=== PATIENT | male | born 1935 | race African-American/Black ===

== ENCOUNTER 2018-08-25 08:30 | Day surgery (SDC) | payer OTHER ==
[2018-08-25] MEDS ORDERED: NA CHLORIDE 0.9% 500 ML ONE ×2 (09:14→09:53)
[2018-08-25] MEDS: PHENYLEPHRINE 10% OPTH 5ML ONE ×3 (09:16→09:36)
[2018-08-25] MEDS: CYCLOPENTOLATE 1% OPTH 2 ML ONE ×3 (09:16→09:36)
[2018-08-25] MEDS ORDERED: NS 0.9% VIAL 10 ML ONE (09:29)
[2018-08-25] MEDS ORDERED: EPINEPHRINE/PF 1 MG/ML AMP ONE (09:30)
[2018-08-25] MEDS: TETRACAINE HCL 0.5% 2ML OPTH ONE ×2 (09:41→10:41)
[2018-08-25] MEDS: BUPIVACAINE 0.25% PF 10 ML VIAL ONE ×2 (09:41→10:41)
[2018-08-25] MEDS ORDERED: PROPOFOL 200 MG/20 ML VIAL IV ONE (10:16)
[2018-08-25] MEDS: EPINEPHRINE/PF 1 MG/ML AMP ONE ×2 (10:17→10:54)
[2018-08-25] MEDS: BALANCED SALT IRRIG PLAIN 500 ML BTL IRR ONE ×2 (10:17→10:54)
[2018-08-25] MEDS: DUOVISC 1 KIT OPTH ONE ×2 (10:17→10:54)
[2018-08-25] MEDS ORDERED: LIDOCAINE 2% MPF 5 ML VIAL ONE (10:17)
[2018-08-25] MEDS: MOXIFLOXACIN HCL 10 DROPS/ML **OR USE OPTH ONE ×3 (10:18→11:19)
[2018-08-25] MEDS: LIDOCAINE 2% MPF 5 ML VIAL ONE ×2 (10:27→10:41)
--- NOTE | 2018-08-25 11:27 | P.BOP ---
Preoperative diagnosis: Nuclear sclerotic cataract OS Postoperative diagnosis: Same Primary procedure: Phacoemulsification with IOL OS Estimated blood loss: None Anesthesia: Local (Subetenon's infusion with anesthesia for cataract surgery) Complications: None Implants: SN60WF +24.5 Transferred to: Other (Day surgery) Condition: Good
--- NOTE | 2018-08-25 21:50 | OP ---
Surgeon: Tamara Geiger MD Anesthesiologist: Lashaun Perez CRNA, and Greyson Batista M.D. Preoperative Diagnosis: Nuclear sclerotic cataract, OS (left eye). Operation Performed: Phacoemulsification with intraocular lens implant, left eye. Anesthesia: Per cataract surgery. Complications: None. Description Of Procedure: In day surgery, the patient was prepped with Betadine and draped. A conju nctival incision was made in the inferior nasal quadrant with Tuan scissors. A sub-Tenon block c onsisting of a 1:1 mixture of 2% Xylocaine and 0.25% bupivacaine was placed through the conjunctival incision with a blunt cannula. A [place] balloon was placed over the eye and the patient was transferr ed to the operating room. In the operating room the patient was prepped and draped in the usual sterile fashion for ophthalmic surgery. A lid speculum was placed in the left eye. Two paracentesis sites were made superiorly and inferiorly in the limbal cornea. Viscoat was placed in the anterior chamber and a crescent blade wa s used to make a corneal groove and tunnel, and a keratome was used to enter the anterior chamber. P rovisc was placed in the anterior chamber and a 360 degree capsulotomy was performed with a cystitome . The lens was hydrodissected with BSS and rotated freely. The lens was removed with a stop and cho p technique. A 7.37 phaco CDE was used to remove the lens. Residual cortex was removed with the irr igation and aspiration. Provisc was placed in the capsular bag. An SN60WF + 24.5 diopter lens was p laced in the capsular bag without complications. Irrigation and aspiration was used to remove residu al viscoelastic. The paracentesis sites were hydrated with BSS. The wound and paracentesis sites we re inspected and found to be watertight. Vigamox 0.07 cc was placed intracamerally at the end of the procedure. The eye was irrigated with balanced salt solution. The eye was patched with a soft cott on patch and Gilbert metal shield. The patient was returned to day surgery in good condition. Comments: The 1:5000 epinephrine was placed in the anterior chamber prior to Viscoat. Discharge Instructions: Mr. Gonzalez is discharged to home in good condition and is to follow up with Dr. Geiger in the morning. JHL/NUSRAT Voice ID: [id number] Report ID: [id number]
== END 2018-08-25 11:55 | disposition home or self-care (01) ==
LOC: OR 08:30
PROVIDERS: ATTEND Ophthalmology Retina Specialist
PROC: 08RK3JZ Replacement of Left Lens with Synthetic Substitute, Percutaneous Approach (ICD-10-PCS; principal; 2018-08-25 10:00)
DX: H25.12 Age-related nuclear cataract, left eye (principal); E78.00 Pure hypercholesterolemia, unspecified; I10 Essential (primary) hypertension; Z79.82 Long term (current) use of aspirin; Z79.899 Other long term (current) drug therapy; Z87.891 Personal history of nicotine dependence
CPT/HCPCS: 66984; J0171 ×2; J2704; V2630

== ENCOUNTER 2019-02-11 08:36 | Day surgery (SDC) | payer OTHER ==
[~2019-02-11 08:36] MED LIST: LIDOCAINE 1% 20 ML MDV ONE
--- NOTE | 2019-02-11 08:44 | RAD REPORT ---
EXAM DESCRIPTION: Nataly Pinedo And Lat (2 Views)02/11/2019 8:31 am CLINICAL HISTORY: Preop for skull biopsy COMPARISON: None FINDINGS: Two subcentimeter nodular opacities right lung base. The remainder of the lungs appear clear. The heart is normal size IMPRESSION: Two subcentimeter nodular opacities right lung base may represent pulmonary nodules or confluence of ribs and vessels. Followup chest series including oblique films recommended for further evaluation
[2019-02-11 09:03] LABS: Potassium 4.3 mmol/L (3.5-5.1)
[2019-02-11 09:05] LABS: Absolute Lymphocytes (CBC) 1.5 K/uL (0.7-4.9); Basophils % 0.4 % (0-1.3); Hematocrit 44.4 % (39.6-49.0); Lymphocytes % 14.7 % (15.3-44.8); MPV 9.5 fL (7.6-11.3); RBC Red Blood Cell Count 5.35 M/uL (4.33-5.43)
[2019-02-11] MEDS ORDERED: Ringers Lactate 1,000 ML IV ONE (09:14)
[2019-02-11] MEDS ORDERED: CEFAZOLIN/SWI 1gm 1 GM/10 ML SYR ONE (09:14)
[2019-02-11] MEDS ORDERED: LIDOCAINE 1% MPF 30 ML VIAL ONE (09:55)
[2019-02-11] MEDS ORDERED: PROPOFOL 200 MG/20 ML VIAL IV ONE (09:59)
[2019-02-11] MEDS ORDERED: FENTANYL CITR 100 MCG/2 ML ONE (09:59)
[2019-02-11] MEDS ORDERED: MIDAZOLAM HCL 2 MG/2 ML INJ ONE ×2 (09:59→10:32)
[2019-02-11] MEDS ORDERED: LIDOCAINE 1% MPF 5 ML VIAL ONE (09:59)
--- NOTE | 2019-02-11 10:46 | EKG ---
Test Date: 2019-02-11 Test Time: 08:24:28 Rock Contractor: MAIKOL MEASUREMENT RESULTS: Intervals: Rate: 74 MI: 168 QRSD: 106 QT: 398 QTc: 441 [place]: P: 68 MI: 168 QRS: 33 T: 39 INTERPRETIVE STATEMENTS: Normal sinus rhythm Nonspecific T wave abnormality Abnormal ECG Compared to ECG 05/04/2002 09:26:00 Sinus bradycardia no longer present Atrial premature complex(es) no longer present T-wave abnormality still present Electronically Signed On 02-11-19 10:45:31 CDT by Gerard Cr
[2019-02-11] MEDS ORDERED: BUPIVACAINE 0.25% PF 10 ML VIAL ONE (11:07)
[2019-02-11] MEDS ORDERED: Mastisol Adhesive Liq ONE (11:27)
--- NOTE | 2019-02-11 22:41 | OP ---
Date of Procedure: 02/11/2019 Surgeon: Kana Amador MD Soda Drier Feeder: SARAH Escoto Preoperative Diagnosis: Right vision change, rule out temporal arteritis. Postoperative Diagnosis: Right vision change, rule out temporal arteritis. Procedure: Right temporal artery biopsy, Doppler aided. Estimated Blood Loss: Minimal. Specimen: Right temporal artery. Anesthesia: MAC. Complications: None. Patient tolerated the procedure in stable condition, was taken to Recovery in good general condition. Procedure In Detail: Patient was brought to the OR and placed in supine position. MAC anesthesia wa s begun. Patient was prepped and draped in the usual sterile fashion. Doppler device was used to is olate approximately a 4 cm segment of the branch of the right temporal artery above the right ear. T hen Marcaine 0.5% was infiltrated locally. A 15-blade was used to make a 4 cm incision. Subcutaneou s tissue was divided, and deep to that, branch of the temporal artery was identified. Proximal and d istal control was obtained, and then 4 cm segment was excised and sent to Pathology as specimen. A 4 -0 silk was used to tie off both ends and the wound was irrigated. Bleeding was controlled with caut bree. A 4-0 chromic was used to approximate the subcutaneous tissue and close the skin. Sterile dres sing was applied. Patient was awakened and taken to Recovery in good general condition. Discharge Note: Patient will go to day surgery and home when stable. Disposition: Home. Condition: Stable. Discharge Instructions: Resume home medications and diet. Activity as tolerated. No heavy lifting. Remove outer dressing in 2 days. Shower. Keep the wound clean and dry. Keep Steri-Strips on at a ll times. Follow up in my office in 2 weeks, call for appointment. Follow with Dr. Geiger in 1 we ek, call for appointment. Tylenol No. 3 one tablet p.o. q.4 p.r.n. pain, Keflex 500 mg p.o. q.6. /MODL Voice ID: [id number] Report ID: [id number]
== END 2019-02-11 12:18 | disposition home or self-care (01) ==
LOC: OR 08:36
PROVIDERS: ATTEND Surgery
PROC: 03BS0ZX Excision of Right Temporal Artery, Open Approach, Diagnostic (ICD-10-PCS; principal; 2019-02-11 09:15)
DX: H53.9 Unspecified visual disturbance (principal); I10 Essential (primary) hypertension
CPT/HCPCS: 93005; 85025; 80048; 36415; 88305; 71046; 37609; J2704; J2250; J0690; J3010

== ENCOUNTER 2024-11-06 10:54 | Emergency (ER) | payer OTHER ==
--- OUTSIDE RECORDS SUMMARY | 2024-11-06 10:58 | XMS REPORT | Continuity of Care Document ---
Author Name Unknown Address [address] [facility] [address] [place] [address] Organization [facility] Address [address] [facility] [address] [place] [address] Care Team Providers Care Brick Paver Name Role Phone Rufino López Attending Clinician Unavailable Payers Payer Name Policy Type Policy Number Effective Date Expirati on Date Source [employer] 53 [id number] 2022 00:00:00 [facility] Problems Condition Name Condition Details Condition Category Status Onset Date Resolution Date Last Treatment Date Treating Clinician Comments Source [id number] 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 Problem [facility] [id number] Mixed hyperlipid emia Problem [facility] [id number] Essential (primary) hypertensi on Problem [facility] [id number] Primary osteoarthr itis of right knee Problem [facility] [id number] Primary osteoarthr itis of left knee Problem [facility] [id number] History of prostate cancer Problem [facility] [id number] Body mass index [BMI] 30.0-30.9, adult Problem [facility] [id number] Glaucoma of both eyes, unspecifie d glaucoma type Problem [facility] Arthritis of both knees Arthritis of both knees Problem [facility] Arthralgia of the lower leg Knee pain, bilateral Problem [facility] [id number] Stage 3 chronic kidney disease, unspecifie d whether stage 3a or 3b CKD Problem [facility] Social History Social Habit Start Date Stop Date Quantity Comments Source History of Tobacco Use [facility] Sex Assigned At [facility] Smoking Status Start Date Stop Date Source Never Smoker [facility] Former Smoker 2024-04-17 00:00:00 2024-04-17 00:00:00 [facility] Medications Ordered Medication Name Filled Medication Name Start Date Stop Date Current Medication? Ordering Clinician Indication Dosage Frequency Signature (SIG) Comments Components Source Aspirin Aspirin No Aspirin amLODIPine Besylate 10 MG amLODIPine Besylate 10 MG No 1{table t} QD amLODIPine Besylate 10 MG Atorvastati n Calcium 40 MG Atorvastati n Calcium 40 MG No 1{table t} QD Atorvastat in Calcium 40 MG Metoprolol Tartrate 50 MG Metoprolol Tartrate 50 MG No 1{table t_with_ food} BID Metoprolol Tartrate 50 MG Latanoprost 0.005 % Latanoprost 0.005 % No Latanopros t 0.005 % Vital Signs Vital Name Observation Time Observation Value Comments S ource height 2024-09-17 11:20:00 63.5 [in_i] Comm on [facility] weight 2024-09-17 11:20:00 147.2 [lb_av] Co mmon [facility] temperature 2024-09-17 11:20:00 97 [degF] Comm on [facility] bmi 2024-09-17 11:20:00 25.66 kg/m2 Comm on [facility] oximetry 2024-09-17 11:20:00 97 % Commo n [facility] respiratory rate 2024-09-17 11:20:00 17 /min [facility] blood pressure systolic 2024-09-17 11:20:00 112 mm[Hg] [facility] blood pressure diastolic 2024-09-17 11:20:00 72 mm[Hg] Common [facility] height 2024-09-17 10:00:00 63.5 [in_i] Comm on [facility] weight 2024-09-17 10:00:00 147.2 [lb_av] Co mmon [facility] temperature 2024-09-17 10:00:00 97 [degF] Comm on [facility] bmi 2024-09-17 10:00:00 25.66 kg/m2 Comm on [facility] oximetry 2024-09-17 10:00:00 97 % Commo n [facility] respiratory rate 2024-09-17 10:00:00 17 /min Common [facility] blood pressure systolic 2024-09-17 10:00:00 112 mm[Hg] Common [facility] blood pressure diastolic 2024-09-17 10:00:00 72 mm[Hg] Common [facility] height 2024-04-17 10:30:00 63.5 [in_i] Comm on [facility] weight 2024-04-17 10:30:00 152.4 [lb_av] Co mmon [facility] temperature 2024-04-17 10:30:00 97.1 [degF] Com mon [facility] bmi 2024-04-17 10:30:00 26.57 kg/m2 Comm on [facility] oximetry 2024-04-17 10:30:00 99 % Commo n [facility] blood pressure systolic 2024-04-17 10:30:00 120 mm[Hg] Common [facility] blood pressure diastolic 2024-04-17 10:30:00 58 mm[Hg] Common [facility] height 2024-04-17 10:30:00 63.5 [in_i] Comm on [facility] weight 2024-04-17 10:30:00 152.4 [lb_av] Co mmon [facility] temperature 2024-04-17 10:30:00 97.1 [degF] Com [facility] bmi 2024-04-17 10:30:00 26.57 kg/m2 Comm on [facility] oximetry 2024-04-17 10:30:00 99 % Commo n [facility] blood pressure systolic 2024-04-17 10:30:00 120 mm[Hg] [facility] blood pressure diastolic 2024-04-17 10:30:00 58 mm[Hg] Common [facility] height 2023-10-17 10:10:00 63.5 [in_i] Comm on [facility] weight 2023-10-17 10:10:00 158.0 [lb_av] Co on [facility] temperature 2023-10-17 10:10:00 97.4 [degF] Com [facility] bmi 2023-10-17 10:10:00 27.55 kg/m2 Comm on [facility] oximetry 2023-10-17 10:10:00 98 % Commo n [facility] respiratory rate 2023-10-17 10:10:00 17 /min [facility] blood pressure systolic 2023-10-17 10:10:00 130 mm[Hg] [facility] blood pressure diastolic 2023-10-17 10:10:00 70 mm[Hg] [facility] height 2023-10-17 10:00:00 63.5 [in_i] Comm on [facility] weight 2023-10-17 10:00:00 158.0 [lb_av] Co mmon [facility] temperature 2023-10-17 10:00:00 97.4 [degF] Com [facility] bmi 2023-10-17 10:00:00 27.55 kg/m2 Comm on [facility] oximetry 2023-10-17 10:00:00 98 % Commo n [facility] respiratory rate 2023-10-17 10:00:00 17 /min Common [facility] blood pressure systolic 2023-10-17 10:00:00 130 mm[Hg] [facility] blood pressure diastolic 2023-10-17 10:00:00 70 mm[Hg] Common [facility] height 2023-06-19 10:40:00 63.5 [in_i] Comm on [facility] weight 2023-06-19 10:40:00 161 [lb_av] Comm on [facility] temperature 2023-06-19 10:40:00 98.2 [degF] Com [facility] bmi 2023-06-19 10:40:00 28.07 kg/m2 Comm on [facility] oximetry 2023-06-19 10:40:00 97 % Commo n [facility] blood pressure systolic 2023-06-19 10:40:00 112 mm[Hg] [facility] blood pressure diastolic 2023-06-19 10:40:00 60 mm[Hg] [facility] height 2023-04-29 13:30:00 63.5 [in_i] Comm on [facility] weight 2023-04-29 13:30:00 161 [lb_av] Comm on [facility] temperature 2023-04-29 13:30:00 98.0 [degF] Com [facility] bmi 2023-04-29 13:30:00 28.07 kg/m2 Comm on [facility] blood pressure systolic 2023-04-29 13:30:00 139 mm[Hg] [facility] blood pressure diastolic 2023-04-29 13:30:00 80 mm[Hg] Common [facility] height 2023-01-29 13:40:00 63.5 [in_i] Comm on [facility] weight 2023-01-29 13:40:00 168.2 [lb_av] Co mmon [facility] temperature 2023-01-29 13:40:00 97.6 [degF] Com mon [facility] bmi 2023-01-29 13:40:00 29.32 kg/m2 Comm on [facility] oximetry 2023-01-29 13:40:00 96 % Commo n [facility] respiratory rate 2023-01-29 13:40:00 16 /min Common [facility] blood pressure systolic 2023-01-29 13:40:00 147 mm[Hg] [facility] blood pressure diastolic 2023-01-29 13:40:00 69 mm[Hg] Common [facility] height 2023-01-29 13:30:00 63.5 [in_i] Comm on [facility] weight 2023-01-29 13:30:00 168.2 [lb_av] Co mmon [facility] temperature 2023-01-29 13:30:00 97.6 [degF] Com mon [facility] bmi 2023-01-29 13:30:00 29.32 kg/m2 Comm on [facility] oximetry 2023-01-29 13:30:00 96 % Commo n [facility] respiratory rate 2023-01-29 13:30:00 16 /min Common [facility] blood pressure systolic 2023-01-29 13:30:00 147 mm[Hg] Common [facility] blood pressure diastolic 2023-01-29 13:30:00 69 mm[Hg] Common [facility] height 2022-10-11 10:00:00 63.5 [in_i] Comm on [facility] weight 2022-10-11 10:00:00 173 [lb_av] Comm on [facility] temperature 2022-10-11 10:00:00 96.5 [degF] Com mon [facility] bmi 2022-10-11 10:00:00 30.16 kg/m2 Comm on [facility] oximetry 2022-10-11 10:00:00 95 % Commo n [facility] respiratory rate 2022-10-11 10:00:00 16 /min [facility] blood pressure systolic 2022-10-11 10:00:00 138 mm[Hg] [facility] blood pressure diastolic 2022-10-11 10:00:00 79 mm[Hg] [facility] Encounters Start Date/Time End Date/Time Encounter Type Admission Type Attending [facility] Care Department Encounter ID Source 2024-09-17 10:50:00 Outpatient López, [facility] [id number] [facility] 2023-10-15 09:20:01 Outpatient López, [facility] [id number] [facility] 2023-06-19 10:27:00 Outpatient López, [facility] [id number] [facility] 2023-04-29 14:50:01 Outpatient López, [facility] [id number] [facility] 2023-04-23 10:38:00 [facility] [id number] [facility] 2023-01-29 13:40:00 Outpatient López, [facility] [id number] [facility] 2022-10-11 09:08:04 [facility] [id number] [facility] 2024-09-17 00:00:00 2024-09-17 00:00:00 SUB ANNUAL [facility] VIS[facility] [id number] [facility] 2024-09-17 00:00:00 2024-09-17 00:00:00 OFFICE VISIT ESTAB PT LEVEL 4 STLMLC STLMLC [id number] [facility] 2024-04-17 00:00:00 2024-04-17 00:00:00 OFFICE VISIT ESTAB PT LEVEL 4 STLMLC STLMLC [id number] [facility] 2023-10-17 00:00:00 2023-10-17 00:00:00 OFFICE VISIT ESTAB PT LEVEL 4 STLMLC STLMLC [id number] [facility] 2023-10-17 00:00:00 2023-10-17 00:00:00 SUB ANNUAL [facility] WELLNESS VISIT STLMLC STLMLC [id number] [facility] 2023-06-19 00:00:00 2023-06-19 00:00:00 OFFICE VISIT ESTAB PT LEVEL 4 STLMLC STLMLC [id number] [facility] 2023-04-30 00:00:00 2023-04-30 00:00:00 (TEL) STLMLC STLMLC [id number] [facility] 2023-04-29 00:00:00 2023-04-29 00:00:00 (INFORMATICA) New Patient STLMLC STLMLC [id number] [facility] 2023-04-19 00:00:00 2023-04-19 00:00:00 (TEL) STLMLC STLMLC [id number] [facility] 2023-04-15 00:00:00 2023-04-15 00:00:00 (TEL) STLMLC STLMLC [id number] [facility] 2023-02-27 00:00:00 2023-02-27 00:00:00 (TEL) STLMLC STLMLC [id number] [facility] 2023-01-29 00:00:00 2023-01-29 00:00:00 OFFICE VISIT ESTAB PT LEVEL 4 STLMLC STLMLC [id number] [facility] 2023-01-29 00:00:00 2023-01-29 00:00:00 SUB ANNUAL [facility] [id number] [facility] 2022-10-11 00:00:00 2022-10-11 00:00:00 OFFICE VISIT NEW PT LEVEL 3 [facility] [id number] [facility] Results Test Description Test Time Test Comments Results Result Co mments Source COMPREHENSIVE METABOLIC [id number] 00:00:00* Test Item Value Reference Range Interpretation Comme nts NUCLEATED RBCS (test code = 99299-8) 0.0 /100 WBC'S See_Comment [Automated message] The system which generated this result transmitted reference range: 0.0 /100 WBC'S. The reference range was not used to interpret this result as normal/abnormal. ABSOLUTE EOSINOPHILS (test code = 96746-2) 0.22 K/UL See_Comment [Automated message] The system which generated this result transmitted reference range: 0.00-0.50 K/UL. The reference range was not used to interpret this result as normal/abnormal. ABSOLUTE LYMPHOCYTES (test code = 58590-1) 2.27 K/UL See_Comment [Automated message] The system which generated this result transmitted reference range: 1.00-4.00 K/UL. The reference range was not used to interpret this result as normal/abnormal. ABSOLUTE MONOCYTES (test code = 56229-9) 0.67 K/UL See_Comment [Automated message] The system which generated this result transmitted reference range: 0.20-1.00 K/UL. The reference range was not used to interpret this result as normal/abnormal. ABSOLUTE NEUTROPHILS (test code = 79057-2) 1.81 K/UL See_Comment [Automated message] The system which generated this result transmitted reference range: 1.50-7.50 K/UL. The reference range was not used to interpret this result as normal/abnormal. BASOPHILS (test code = 36778-4) 1.6 % EOSINOPHILS (test code = 72373-5) 4.4 % HEMATOCRIT (test code = 64131-6) 44.8 % See_Comment [Automated messa ge] The system which generated this result transmitted reference range: 40.0-51.0 %. The reference range was not used to interpret this result as normal/abnormal. HEMOGLOBIN (test code = 718-7) 14.1 G/DL See_Comment [Automated messa ge] The system which generated this result transmitted reference range: 13.5-17.0 G/DL. The reference range was not used to interpret this result as normal/abnormal. LYMPHOCYTES (test code = 56256-0) 45.0 % MCH (test code = 16216-5) 26.8 PG See_Comment [Automated messa ge] The system which generated this result transmitted reference range: 25.0-33.0 PG. The reference range was not used to interpret this result as normal/abnormal. MCHC (test code = 96357-1) 31.5 G/DL See_Comment [Automated messa ge] The system which generated this result transmitted reference range: 31.0-36.0 G/DL. The reference range was not used to interpret this result as normal/abnormal. MCV (test code = 28641-7) 85.0 fL See_Comment [Automated messa ge] The system which generated this result transmitted reference range: 80.0-99.0 fL. The reference range was not used to interpret this result as normal/abnormal. MONOCYTES (test code = 80019-7) 13.3 % NEUTROPHILS (test code = 75402-0) 35.7 % PLATELET COUNT (test code = 22148-5) 161 K/UL See_Comment [Automated messa ge] The system which generated this result transmitted reference range: 130-400 K/UL. The reference range was not used to interpret this result as normal/abnormal. RBC (test code = 47092-8) 5.27 M/UL See_Comment [Automated messa ge] The system which generated this result transmitted reference range: 4.50-6.10 M/UL. The reference range was not used to interpret this result as normal/abnormal. RDW (test code = 54547-8) 14.4 % See_Comment [Automated messa ge] The system which generated this result transmitted reference range: 11.5-15.0 %. The reference range was not used to interpret this result as normal/abnormal. WBC (test code = 55041-1) 5.1 K/UL See_Comment [Automated messa ge] The system which generated this result transmitted reference range: 3.5-11.0 K/UL. The reference range was not used to interpret this result as normal/abnormal. HEMOGLOBIN A1c (test code = 4548-4) 6.0 % See_Comment H [Automated [employer]] The system which generated this result transmitted reference range: 4.2-5.6 %. The reference range was not used to interpret this result as normal/abnormal. CALC LDL CHOL (test code = 57855-4) 83 MG/DL See_Comment [Automated [employer]] The system which generated this result transmitted reference range: <100 MG/DL. The reference range was not used to interpret this result as normal/abnormal. CHOLESTEROL (test code = 2093-3) 152 MG/DL See_Comment [Automated [employer]] The system which generated this result transmitted reference range: <200 MG/DL. The reference range was not used to interpret this result as normal/abnormal. HDL CHOLESTEROL (test code = 2085-9) 52 MG/DL See_Comment [Automated [employer]] The system which generated this result transmitted reference range: >39 MG/DL. The reference range was not used to interpret this result as normal/abnormal. RISK RATIO LDL/HDL (test code = 33003-0) 1.60 RATIO See_Comment [Automated message] The system which generated this result transmitted reference range: <3.55 RATIO. The reference range was not used to interpret this result as normal/abnormal. TRIGLYCERIDES (test code = 2571-8) 83 MG/DL See_Comment [Automated [employer]] The system which generated this result transmitted reference range: <150 MG/DL. The reference range was not used to interpret this result as normal/abnormal. ALBUMIN (test code = 1751-7) 4.0 G/DL See_Comment [Automated [employer]] The system which generated this result transmitted reference range: 3.5-5.2 G/DL. The reference range was not used to interpret this result as normal/abnormal. ALKALINE PHOSPHATASE (test code = 6768-6) 96 U/L See_Comment [Automated message] The system which generated this result transmitted reference range: 40-125 U/L. The reference range was not used to interpret this result as normal/abnormal. BILIRUBIN, TOTAL (test code = 1975-2) 0.5 MG/DL See_Comment [Automated [employer]] The system which generated this result transmitted reference range: <=1.2 MG/DL. The reference range was not used to interpret this result as normal/abnormal. BUN (test code = 3094-0) 15 MG/DL See_Comment [Automated messa ge] The system which generated this result transmitted reference range: 8-23 MG/DL. The reference range was not used to interpret this result as normal/abnormal. CALCIUM (test code = 18164-9) 9.4 MG/DL See_Comment [Automated messa ge] The system which generated this result transmitted reference range: 8.5-10.5 MG/DL. The reference range was not used to interpret this result as normal/abnormal. CALC A/G RATIO (test code = 1759-0) 1.7 RATIO See_Comment [Automated messa ge] The system which generated this result transmitted reference range: 1.0-2.6 RATIO. The reference range was not used to interpret this result as normal/abnormal. CALC BUN/CREAT (test code = 3097-3) 11 RATIO See_Comment [Automated messa ge] The system which generated this result transmitted reference range: 6-28 RATIO. The reference range was not used to interpret this result as normal/abnormal. CALC GLOBULIN (test code = 55240-7) 2.4 G/DL See_Comment [Automated messa ge] The system which generated this result transmitted reference range: 1.9-3.7 G/DL. The reference range was not used to interpret this result as normal/abnormal. CARBON DIOXIDE (test code = 1963-8) 27 MEQ/L See_Comment [Automated messa ge] The system which generated this result transmitted reference range: 19-31 MEQ/L. The reference range was not used to interpret this result as normal/abnormal. CHLORIDE (test code = 2075-0) 104 MEQ/L See_Comment [Automated messa ge] The system which generated this result transmitted reference range: 95-107 MEQ/L. The reference range was not used to interpret this result as normal/abnormal. CREATININE (test code = 2160-0) 1.33 MG/DL See_Comment [Automated messa ge] The system which generated this result transmitted reference range: 0.80-1.40 MG/DL. The reference range was not used to interpret this result as normal/abnormal. eGFR (2020 CKD-EPI) (test code = 98063-9) 51 ML/MIN/1.73 See_Comment L [Automated message] The system which generated this result transmitted reference range: >60 ML/MIN/1.73. The reference range was not used to interpret this result as normal/abnormal. GLUCOSE (test code = 1558-6) 92 MG/DL See_Comment [Automated messa ge] The system which generated this result transmitted reference range: 70-99 MG/DL. The reference range was not used to interpret this result as normal/abnormal. POTASSIUM (test code = 2823-3) 4.5 MEQ/L See_Comment [Automated messa ge] The system which generated this result transmitted reference range: 3.5-5.4 MEQ/L. The reference range was not used to interpret this result as normal/abnormal. PROTEIN, TOTAL (test code = 2885-2) 6.4 G/DL See_Comment [Automated messa ge] The system which generated this result transmitted reference range: 6.1-8.3 G/DL. The reference range was not used to interpret this result as normal/abnormal. AST (test code = 1920-8) 17 U/L See_Comment [Automated messa ge] The system which generated this result transmitted reference range: 9-50 U/L. The reference range was not used to interpret this result as normal/abnormal. ALT (test code = 1742-6) 15 U/L See_Comment [Automated messa ge] The system which generated this result transmitted reference range: 5-50 U/L. The reference range was not used to interpret this result as normal/abnormal. SODIUM (test code = 2951-2) 140 MEQ/L See_Comment [Automated messa ge] The system which generated this result transmitted reference range: 133-146 MEQ/L. The reference range was not used to interpret this result as normal/abnormal. CBC W/AUTO [id number] 00:00:00* Test Item Value Reference Range Interpretation Comme nts NUCLEATED RBCS (test code = 51865-8) 0.0 /100 WBC'S See_Comment [Automated messa ge] The system which generated this result transmitted reference range: 0.0 /100 WBC'S. The reference range was not used to interpret this result as normal/abnormal. ABSOLUTE EOSINOPHILS (test code = 69291-3) 0.26 K/UL See_Comment [Automated messa ge] The system which generated this result transmitted reference range: 0.00-0.50 K/UL. The reference range was not used to interpret this result as normal/abnormal. ABSOLUTE LYMPHOCYTES (test code = 95133-5) 2.08 K/UL See_Comment [Automated messa ge] The system which generated this result transmitted reference range: 1.00-4.00 K/UL. The reference range was not used to interpret this result as normal/abnormal. ABSOLUTE MONOCYTES (test code = 84519-7) 0.75 K/UL See_Comment [Automated messa ge] The system which generated this result transmitted reference range: 0.20-1.00 K/UL. The reference range was not used to interpret this result as normal/abnormal. ABSOLUTE NEUTROPHILS (test code = 00687-6) 2.49 K/UL See_Comment [Automated messa ge] The system which generated this result transmitted reference range: 1.50-7.50 K/UL. The reference range was not used to interpret this result as normal/abnormal. BASOPHILS (test code = 68678-0) 1.6 % EOSINOPHILS (test code = 98059-3) 4.6 % HEMATOCRIT (test code = 63797-5) 43.8 % See_Comment [Automated messa ge] The system which generated this result transmitted reference range: 40.0-51.0 %. The reference range was not used to interpret this result as normal/abnormal. HEMOGLOBIN (test code = 718-7) 14.1 G/DL See_Comment [Automated messa ge] The system which generated this result transmitted reference range: 13.5-17.0 G/DL. The reference range was not used to interpret this result as normal/abnormal. LYMPHOCYTES (test code = 61194-1) 36.6 % MCH (test code = 30792-5) 27.4 PG See_Comment [Automated messa ge] The system which generated this result transmitted reference range: 25.0-33.0 PG. The reference range was not used to interpret this result as normal/abnormal. MCHC (test code = 70929-7) 32.2 G/DL See_Comment [Automated messa ge] The system which generated this result transmitted reference range: 31.0-36.0 G/DL. The reference range was not used to interpret this result as normal/abnormal. MCV (test code = 43601-7) 85.0 fL See_Comment [Automated messa ge] The system which generated this result transmitted reference range: 80.0-99.0 fL. The reference range was not used to interpret this result as normal/abnormal. MONOCYTES (test code = 53592-4) 13.2 % NEUTROPHILS (test code = 04007-7) 43.8 % PLATELET COUNT (test code = 13775-8) 186 K/UL See_Comment [Automated messa ge] The system which generated this result transmitted reference range: 130-400 K/UL. The reference range was not used to interpret this result as normal/abnormal. RBC (test code = 26106-8) 5.15 M/UL See_Comment [Automated messa ge] The system which generated this result transmitted reference range: 4.50-6.10 M/UL. The reference range was not used to interpret this result as normal/abnormal. RDW (test code = 94131-3) 14.6 % See_Comment [Automated messa ge] The system which generated this result transmitted reference range: 11.5-15.0 %. The reference range was not used to interpret this result as normal/abnormal. WBC (test code = 22104-5) 5.7 K/UL See_Comment [Automated messa ge] The system which generated this result transmitted reference range: 3.5-11.0 K/UL. The reference range was not used to interpret this result as normal/abnormal. CBC W/AUTO [id number] 00:00:00* Test Item Value Reference Range Interpretation Comme nts NUCLEATED RBCS (test code = 77552-0) 0.0 /100 WBC'S See_Comment [Automated messa ge] The system which generated this result transmitted reference range: 0.0 /100 WBC'S. The reference range was not used to interpret this result as normal/abnormal. ABSOLUTE EOSINOPHILS (test code = 29596-9) 0.14 K/UL See_Comment [Automated messa ge] The system which generated this result transmitted reference range: 0.00-0.50 K/UL. The reference range was not used to interpret this result as normal/abnormal. ABSOLUTE LYMPHOCYTES (test code = 81419-9) 2.00 K/UL See_Comment [Automated messa ge] The system which generated this result transmitted reference range: 1.00-4.00 K/UL. The reference range was not used to interpret this result as normal/abnormal. ABSOLUTE MONOCYTES (test code = 58190-8) 0.66 K/UL See_Comment [Automated messa ge] The system which generated this result transmitted reference range: 0.20-1.00 K/UL. The reference range was not used to interpret this result as normal/abnormal. ABSOLUTE NEUTROPHILS (test code = 20511-4) 2.02 K/UL See_Comment [Automated messa ge] The system which generated this result transmitted reference range: 1.50-7.50 K/UL. The reference range was not used to interpret this result as normal/abnormal. BASOPHILS (test code = 72807-2) 1.2 % EOSINOPHILS (test code = 29554-7) 2.9 % HEMATOCRIT (test code = 33427-8) 45.3 % See_Comment [Automated messa ge] The system which generated this result transmitted reference range: 40.0-51.0 %. The reference range was not used to interpret this result as normal/abnormal. HEMOGLOBIN (test code = 718-7) 14.7 G/DL See_Comment [Automated messa ge] The system which generated this result transmitted reference range: 13.5-17.0 G/DL. The reference range was not used to interpret this result as normal/abnormal. LYMPHOCYTES (test code = 71829-2) 40.9 % MCH (test code = 75619-7) 26.8 PG See_Comment [Automated messa ge] The system which generated this result transmitted reference range: 25.0-33.0 PG. The reference range was not used to interpret this result as normal/abnormal. MCHC (test code = 67841-9) 32.5 G/DL See_Comment [Automated messa ge] The system which generated this result transmitted reference range: 31.0-36.0 G/DL. The reference range was not used to interpret this result as normal/abnormal. MCV (test code = 14764-1) 82.5 fL See_Comment [Automated messa ge] The system which generated this result transmitted reference range: 80.0-99.0 fL. The reference range was not used to interpret this result as normal/abnormal. MONOCYTES (test code = 19631-4) 13.5 % NEUTROPHILS (test code = 08883-9) 41.3 % PLATELET COUNT (test code = 25988-9) 157 K/UL See_Comment [Automated [employer]] The system which generated this result transmitted reference range: 130-400 K/UL. The reference range was not used to interpret this result as normal/abnormal. RBC (test code = 97938-3) 5.49 M/UL See_Comment [Automated [employer]] The system which generated this result transmitted reference range: 4.50-6.10 M/UL. The reference range was not used to interpret this result as normal/abnormal. RDW (test code = 75783-5) 14.6 % See_Comment [Automated [employer]] The system which generated this result transmitted reference range: 11.5-15.0 %. The reference range was not used to interpret this result as normal/abnormal. WBC (test code = 93949-6) 4.9 K/UL See_Comment [Automated [employer]] The system which generated this result transmitted reference range: 3.5-11.0 K/UL. The reference range was not used to interpret this result as normal/abnormal.
[2024-11-06] MEDS ORDERED: HYDROCODONE/APAP 7.5/325 MG TAB ONE (12:12)
[2024-11-06 12:36] LABS: Absolute Basophils 0.1 K/uL (0-0.5); Absolute Lymphocytes (CBC) 1.6 K/uL (0.7-4.9); Absolute Monocytes 1.3 K/uL (0.1-1.3); Absolute Neutrophil 5.7 K/uL (1.8-8.0); Basophils % 0.8 % (0-1.3); Eosinophils % 0.4 % (0-4.4); Hematocrit 45.3 % (39.6-49.0); Hemoglobin 15.3 g/dL (13.6-17.9); Lymphocytes % 18.2 % (15.3-44.8); MCH 27.4 pg (27.0-35.0); MCHC 33.7 g/dL (32.0-36.0); MCV 81.4 fL (80-100); MPV 9.5 fL (7.6-11.3); Monocytes % 14.6 % (3.3-12.3); Nucleated Red Blood Cells % 0.1 % (0-0); Platelets 150 thou/uL (152-406); RBC Red Blood Cell Count 5.56 M/uL (4.33-5.43); Red Cell Distribution Width 16.3 % (12.1-15.2)
[2024-11-06 12:55] LABS: Albumin 3.5 g/dL (3.4-5.0); Albumin/Globulin Ratio 0.8 (1.1-1.8); Anion Gap 10.2 mEq/L (5.0-15.0); Bilirubin Total 1.3 mg/dL (0.2-1.0); Globulin 4.4 g/dL (2.3-3.5); Potassium 4.2 mEq/L (3.5-5.1); Protein, Total 7.9 g/dL (6.4-8.2); Uric Acid 6.2 mg/dL (3.5-7.2)
--- NOTE | 2024-11-06 12:55 | RAD REPORT ---
EXAM: XR Knee Right 3 View HISTORY: [facility] MAIN PAIN Bed Name: [id number] COMPARISON: None TECHNIQUE: 3 views of the right knee were obtained. FINDINGS: Moderate knee effusion is seen. There is no evidence of acute fracture or dislocation. At least moderate tricompartmental osteoarthritic changes with joint space loss most pronounced laterally. Sclerotic lesion along the distal femoral shaft, nonspecific and could represent a small b one island. Vascular calcifications. IMPRESSION: No evidence of acute osseous abnormality. Moderate diffusion and at least moderate trico mpartmental osteoarthritic changes as above.
--- NOTE | 2024-11-06 14:04 | RAD REPORT ---
EXAMINATION: US RIGHT LOWER EXTREMITY VENOUS DOPPLER CLINICAL INDICATION: [facility] MAIN RLE PAIN Bed Name: IW6 Y TECHNIQUE: Complete bilateral duplex sonography of the RIGHT lower extremity veins was performed. The examination included compression for vein patency, color Doppler imaging and flow augmentation in response to distal compression of the distal external iliac, common femoral, femoral, popliteal, tibi al, and great and small saphenous veins. COMPARISON: No prior exam. FINDINGS: Duplex sonography testing of the veins of the RIGHT lower extremity was performed. Color flow imaging shows all veins to be compressible with [id number] color filling. Pulsatile and phasic flow is present within all lower extremity deep and superficial veins examined. IMPRESSION: No evidence of deep venous thrombosis.
--- NOTE | 2024-11-06 14:37 | ER ---
Nurse's Notes [facility] Name: Paulino Gonzalez Age: 89 yrs Sex: Male : 1935 Arrival Date: 11/06/2024 Time: 10:54 Bed 11 Private MD: Diagnosis: Pain in right knee Presentation: 11/06 11:21 Chief complaint: Patient states: Pain to right leg - woke up this morning with pain to ld1 right leg. Denies injury. Pt point to right knee/under right knee. Coronavirus screen: At this time, the client does not indicate any symptoms associated with coronavirus-19. Ebola Screen: No symptoms or risks identified at this time. Initial Sepsis Screen: Does the patient meet any 2 criteria? No. Patient's initial sepsis screen is negative. Does the patient have a suspected source of infection? No. Patient's initial sepsis screen is negative. Risk Assessment: Do you want to hurt yourself or someone else? Patient reports no desire to harm self or others. Onset of symptoms was November 06, 2024. 11:21 Method Of Arrival: Wheelchair ld1 11:21 Acuity: KANDY 4 ld1 Triage Assessment: 11:21 General: Appears in no apparent distress. uncomfortable, Behavior is calm, cooperative, ld1 appropriate for age. Pain: Complains of pain in right knee Pain does not radiate. Pain currently is 7 out of 10 on a pain scale. Quality of pain is described as throbbing, Pain began suddenly, Is continuous. EENT: No signs and/or symptoms were reported regarding the EENT system. Neuro: Level of Consciousness is awake, alert, obeys commands, Oriented to person, place, time, situation. Cardiovascular: Capillary refill < 3 seconds Patient's skin is warm and dry. Respiratory: Airway is patent Respiratory effort is even, unlabored. GI: Abdomen is flat, non-distended. : No signs and/or symptoms were reported regarding the genitourinary system. Derm: No signs and/or symptoms reported regarding the dermatologic system. Musculoskeletal: No signs and/or symptoms reported regarding the musculoskeletal system. Historical: - Allergies: 11: No Known Allergies; ld1 - PMHx: : Glaucoma; High Cholesterol; Hypertension; ld1 - Immunization history:: Adult Immunizations up to date. - Infectious Disease History:: Denies. - Social history:: Smoking status: Patient denies any tobacco usage or history of. - Family history:: not pertinent. Screenin:10 [facility] ED Fall Risk Assessment (Adult) History of falling in the last 3 months, me1 including since admission No falls in past 3 months (0 pts) Confusion or Disorientation No (0 pts) Intoxicated or Sedated No (0 pts) Impaired Gait Yes (1 pt) Mobility Assist Device Used Yes (1 pt) Altered Elimination No (0 pt) Score/Fall Risk Level 0 - 2 = Low Risk Maintained a safe environment, Provided non-skid footwear, Hourly rounding (assess needs \T\ fall precautionary measures) done. Abuse screen: Denies threats or abuse. Nutritional screening: No deficits noted. Tuberculosis screening: No symptoms or risk factors identified. Assessment: 12:10 General: Appears uncomfortable, well groomed, well developed, well nourished, Behavior me1 is calm, cooperative, appropriate for age, Reports Pain to right leg - woke up this morning with pain to right leg. Denies injury. Pt point to right knee/under right knee. Pain: Complains of pain in right leg and right knee Pain does not radiate. Pain currently is 10 out of 10 on a pain scale. Quality of pain is described as sharp, Pain began suddenly, Is continuous. Neuro: Level of Consciousness is awake, alert, obeys commands, Oriented to person, place, time, situation, Appropriate for age. Cardiovascular: Patient's skin is warm and dry. Respiratory: Airway is patent Respiratory effort is even, unlabored, Respiratory pattern is regular, symmetrical. GI: No signs and/or symptoms were reported involving the gastrointestinal system. : No signs and/or symptoms were reported regarding the genitourinary system. EENT: No signs and/or symptoms were reported regarding the EENT system. Derm: Skin is intact, is healthy with good turgor, Skin is pink, warm \T\ dry. Musculoskeletal: Reports pain in right leg and right knee. Vital Signs: 11:21 BP 129 / 97; Pulse 70; Resp 18; Pulse Ox 100% on R/A; Weight 72.57 kg; Height 5 ft. 8 ld1 in. ; Pain 7/10; 13:00 BP 157 / 80; Pulse 70; Resp 17; Pulse Ox 100% ; me1 14:00 BP 140 / 68; Pulse 72; Resp 16; Temp 98.2; Pulse Ox 97% ; me1 11:21 Body Mass Index 24.33 (72.57 kg, 172.72 cm) ld1 11:21 Pain Scale: Adult ld1 ED Course: 10:57 Patient arrived in ED. im 10:59 Riaz Roe MD is Attending Physician. rt 11:21 Arm band placed on right wrist. ld1 11:23 Triage completed. ld1 12:03 Lia Lewis, RN is Primary Nurse. me1 12:10 Patient has correct armband on for positive identification. Bed in low position. Call me1 light in reach. Side rails up X2. Provided Education on: POC. Verbalized understanding. Client placed on continuous cardiac and pulse oximetry monitoring. NIBP monitoring applied. Pulse ox on. NIBP on. 12:10 No provider procedures requiring assistance completed. me1 12:29 Initial lab(s) drawn, by me, sent to lab. Inserted saline lock: 22 gauge in right me1 antecubital area, using aseptic technique. 12:45 Knee Right 3 View XRAY In Process Unspecified. EDMS 13:05 Extremity Venous Uni Ltd US In Process Unspecified. EDMS 14:52 IV discontinued, intact, bleeding controlled, No redness/swelling at site. Pressure me1 dressing applied. Administered Medications: 12:30 Drug: Hydrocodone-Acetaminophen PO (7.5 mg-325 mg) 1 tabs PO once Route: PO; me1 13:33 Follow up: Response: No adverse reaction; Pain is decreased me1 Medication: 12:10 VIS not applicable for this client. me1 Outcome: 14:37 Discharge ordered by . rt 14:52 Discharged to home via wheelchair, with family, me1 14:52 Condition: stable 14:52 Discharge instructions given to patient, family, Instructed on discharge instructions, follow up and referral plans. medication usage, Demonstrated understanding of instructions, follow-up care, medications, Prescriptions given X 2, 14:52 Patient left the ED. me1 Signatures: Dispatcher [employer] EDMS Spring Faustin RN RN ld1 Riaz Roe MD MD rt Gemma Lawson Lia Lewis, RN RN me1 Corrections: (The following items were deleted from the chart) 13:30 11:21 Chief complaint: Patient states: Pain to right leg - woke up this morning with me1 pain to right leg. Denies injury. Pt point to right knee/under right knee. ld1
--- NOTE | 2024-11-06 14:37 | EDPHYS ---
Physician Documentation [facility] Name: Paulino Gonzalez Age: 89 yrs Sex: Male : 1935 Arrival Date: 11/06/2024 Time: 10:54 Bed 11 Private MD: ED Physician Riaz Roe HPI: 11/06 16:52 This 89 yrs old Black Male presents to ER via Wheelchair with complaints of Leg Pain - rt right. 16:52 Patient presents to the ED with about 2 days of pain to the right knee. Patient denies rt injury to the knee. States that hurts worse in the back of the knee. States that is painful for a while. Denies other acute complaints at this time, symptoms are moderate in severity, aching nature, nonradiating, no other aggravating or alleviating factors.. Historical: - Allergies: 11:21 No Known Allergies; ld1 - PMHx: 11:21 Glaucoma; High Cholesterol; Hypertension; ld1 - Immunization history:: Adult Immunizations up to date. - Infectious Disease History:: Denies. - Social history:: Smoking status: Patient denies any tobacco usage or history of. - Family history:: not pertinent. ROS: 16:52 Cardiovascular: Negative for chest pain, palpitations, and edema, Respiratory: Negative rt for shortness of breath, cough, wheezing, and pleuritic chest pain, Abdomen/GI: Negative for abdominal pain, nausea, vomiting, diarrhea, and constipation, Skin: Negative for injury, rash, and discoloration, Psych: Negative for depression, anxiety, suicide ideation, homicidal ideation, and hallucinations, 16:52 MS/extremity: Positive for pain, Negative for injury or acute deformity, Exam: 16:52 Constitutional: This is a well developed, well nourished patient who is awake, alert, rt and in no acute distress. Head/Face: Normocephalic, atraumatic. Chest/axilla: Normal chest wall appearance and motion. Nontender with no deformity. No lesions are appreciated. Cardiovascular: Regular rate and rhythm with a normal S1 and S2. No gallops, murmurs, or rubs. Normal PMI, no JVD. No pulse deficits. Respiratory: Lungs have equal breath sounds bilaterally, clear to auscultation and percussion. No rales, rhonchi or wheezes noted. No increased work of breathing, no retractions or nasal flaring. Abdomen/GI: Soft, non-tender, with normal bowel sounds. No distension or tympany. No guarding or rebound. No evidence of tenderness throughout. 16:52 Musculoskeletal/extremity: Mild swelling noted to the right knee, is mildly warm compared to the other side, however, there are no overlying skin changes, mild tenderness to the popliteal fossa, no other focal areas of tenderness, pulses, motor, sensation are intact. Vital Signs: 11:21 BP 129 / 97; Pulse 70; Resp 18; Pulse Ox 100% on R/A; Weight 72.57 kg; Height 5 ft. 8 ld1 in. ; Pain 7/10; 13:00 BP 157 / 80; Pulse 70; Resp 17; Pulse Ox 100% ; me1 14:00 BP 140 / 68; Pulse 72; Resp 16; Temp 98.2; Pulse Ox 97% ; me1 11:21 Body Mass Index 24.33 (72.57 kg, 172.72 cm) ld1 11:21 Pain Scale: Adult ld1 MDM: 11:25 Medical Screening Exam initiated rt 16:52 Differential diagnosis: Gout, DVT, arthritis, fracture, septic arthritis. Data rt reviewed: vital signs, nurses notes, lab test result(s), radiologic studies. I considered the following discharge prescriptions or medication management in the emergency department Medications were administered in the Emergency Department. See MAR. Independent interpretation of the following test(s) in the Emergency Department X-Ray: My interpretation is No fracture seen on my interpretation of x-ray images. Test considered but Not performed: Labs: Patient without overlying skin changes, no leukocytosis 2 days on from this pain. For this reason, I have a lower suspicion for septic arthritis and do not believe that arthrocentesis is indicated at this time. I did discuss at length with the patient and family signs and symptoms that would be concerning for septic arthritis instructed them to return immediately if he were to develop any of the symptoms. Care significantly affected by the following chronic conditions: Hypertension. Counseling: I had a detailed discussion with the patient and/or guardian regarding the historical points, exam findings, and any diagnostic results supporting the discharge/admit diagnosis, lab results, radiology results, the need for outpatient follow up, to return to the emergency department if symptoms worsen or persist or if there are any questions or concerns that arise at home. Response to treatment: the patient's symptoms have markedly improved after treatment. 11/06 11:31 Order name: CBC with Diff; Complete Time: 12:55 rt 11/06 11:31 Order name: CMP; Complete Time: 12:56 rt 11/06 11:31 Order name: Uric Acid; Complete Time: 12:56 rt 11/06 11:31 Order name: Knee Right 3 View XRAY; Complete Time: 12:56 rt 11/06 11:31 Order name: Extremity Venous Uni Ltd US; Complete Time: 14:05 rt Administered Medications: 12:30 Drug: Hydrocodone-Acetaminophen PO (7.5 mg-325 mg) 1 tabs PO once Route: PO; me1 13:33 Follow up: Response: No adverse reaction; Pain is decreased me1 Disposition Summary: 11/06/24 14:37 Discharge Ordered Notes: Location: Home rt Problem: new rt Symptoms: have improved rt Condition: Stable rt Diagnosis - Pain in right knee rt Followup: rt - With: Private Physician - When: 2 - 3 days - Reason: Discharge Instructions: - Discharge Summary Sheet rt - Acute Knee Pain, Adult rt Forms: - Medication Reconciliation Form rt - Antibiotic Education rt - Prescription Opioid Use rt - Patient Portal Instructions rt - Leadership Thank You Letter rt Prescriptions: - Tramadol 50 mg Oral Tablet - take 1 tablet ORAL route every 8 hours as needed; 12 tablet; Refills: 0, rt Product Selection Permitted - Prednisone 20 mg Oral Tablet - take 2 tablets ORAL route once daily for 5 days; 10 tablet; Refills: 0, Product rt Selection Permitted Signatures: Dispatcher [facility] EDSC Spring Faustin RN RN ld1 Riaz Roe MD MD rt Lia Lewis RN RN me1 Corrections: (The following items were deleted from the chart) 11: 11:31 Knee Right 3 View+RAD.RAD.BRZ ordered. EDMS EDMS 11: 11:31 Extremity Venous Uni Ltd+US.RAD.BRZ ordered. EDMS EDMS 11: 11:31 CBC+H.LAB.BRZ ordered. EDMS EDMS 11: 11:31 COMPREHENSIVE METABOLIC PANEL+C.LAB.BRZ ordered. EDMS EDMS 11: 11:31 URIC ACID+C.LAB.BRZ ordered. EDMS EDMS
[2024-11-06 15:11] VITALS: BP 140/68; TEMP 98.2; O2SAT 97
== END 2024-11-06 14:52 | disposition home or self-care (01) ==
LOC: ER 10:54
DX: M25.561 Pain in right knee (principal)
CPT/HCPCS: 36415; 80053; 84550; 85025; 93971; 99284